=== PATIENT | female | born 1975 | race Caucasian/White ===

== ENCOUNTER 2025-01-24 20:43 | Outpatient (REF) | payer BC, OTHER, SELFPAY ==
[2025-01-27 14:09] LABS: Age Gdln ACOG Testing Note (.); HPV Aptima Negative (Negative); IGP, Aptima HPV, rfx 16/18,45 Note (.)
== END 2025-01-24 20:44 | disposition home or self-care (01) ==
LOC: LAB 20:43
PROVIDERS: PCP Family Medicine; Visit Provider Obstetrics & Gynecology
DX: Z01.419 Encounter for gynecological examination (general) (routine) without abnormal findings (principal)
CPT/HCPCS: 87624; 88175